=== PATIENT | female | born 1990 | race Caucasian/White ===

== ENCOUNTER 2018-10-21 18:25 | Emergency (ER) | payer SELFPAY ==
[2018-10-21] MEDS ORDERED: LIDOCAINE 1% INJ-PF (10 MG/ML) 30 ML SDV NEB ONE (18:51)
[2018-10-21] MEDS ORDERED: AZITHROMYCIN 1 GM SUSP PACKET PO ONE (18:51)
[2018-10-21] MEDS ORDERED: CEFTRIAXONE INJ 250 MG VIAL IM ONE (18:51)
[2018-10-21] MEDS ORDERED: AZITHROMYCIN 250 MG TABLET PO ONE (19:06)
[2018-10-21 19:18] LABS: EPITHELIALS (WET MOUNT) 4+ EPITHELIALS SEEN; RBCS (WET MOUNT) RARE RBCS SEEN; T.VAGINALIS (WET MOUNT) NO TRICHOMONAS SEEN; WBCS (WET MOUNT) FEW WBCS SEEN; YEAST (WET MOUNT) NO YEAST SEEN
[2018-10-21 19:19] LABS: APPEARANCE,URINE CLEAR; BILIRUBIN,URINE NEGATIVE (NEGATIVE); COLOR,URINE AMBER; GLUCOSE, URINE NEGATIVE (NEGATIVE); KETONES,URINE NEGATIVE (NEGATIVE); LEUKOCYTE ESTERASE,URINE TRACE (NEGATIVE); NITRITE,URINE POSITIVE (NEGATIVE); PROTEIN,URINE 30 mg/dL (NEGATIVE); URINE SPECIFIC GRAVITY 1.019
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
[2018-10-21 19:42] VITALS: BP 114/73
[2018-10-21 20:48] LABS: CHLAM PCR NOT DETECTED (NOT DETECT)
== END 2018-10-21 19:59 | disposition home or self-care (01) ==
LOC: ER 18:25
DX: N30.01 Acute cystitis with hematuria (principal); R30.0 Dysuria; R35.0 Frequency of micturition; R10.30 Lower abdominal pain, unspecified; M54.5 Low back pain; R39.15 Urgency of urination; F17.200 Nicotine dependence, unspecified, uncomplicated
CPT/HCPCS: 94640; 99283; 87210; 81025; 81001; 87491; 87591; J3490; J0696

== ENCOUNTER → 2019-03-22 | Outpatient (CLI) | payer MEDICAID ==
--- NOTE | 2019-03-22 14:09 | RADIOLOGY REPORT (SQ) ---
EXAM DESCRIPTION: U/S OB 14+ TRNABD 1GES W/O DOP COMPLETED DATE/TIME: 03/22/2019 11:18 am REASON FOR STUDY: Z34.82 ENCOUNTER FOR SUPERVISION OF OTHER NORMAL , SECOND TRIMESTE Z34.82 ENCOUNTER FOR SUPRVSN OF NORMAL , SECOND TRI COMPARISON: None. TECHNIQUE: Static and Dynamic grayscale imaging performed of gravid uterus using transabdominal appr oach. Additional selected color Doppler and spectral images recorded. All stored on PACS. LIMITATIONS: None. FINDINGS: FETUSES SEEN:1 EGA: 18 weeks 6 days Calculated using BPD,FL,HC,AC documented on images. No discrepancy with clinica l dates. IRAIS: 08/17/2019 EFW: 259 +/-38 grams PERCENTILE: Not applicable. Fetus less than or equal to 20 weeks gestation. JANET: LVP 3.6 cm x 5.9 cm PLACENTA: Posterior. PRESENTATION: Breech. ANATOMY: HEART RATE: 163 beats per minute. FOUR CHAMBER HEART: Visualized. THREE VESSEL CORD: Yes. CORD INSERTION: Not visualized. KIDNEYS AND BLADDER: Visualized. Appear normal. STOMACH: Visualized. Appears normal. SPINE: Normal as visualized. BRAIN AND LATERAL VENTRICLES: Visualized. Appear normal. OTHER: No other significant finding. MATERNAL ADNEXA: Maternal ovaries not visualized. CERVICAL LENGTH: Not visualized. Patient voided prior to the examination. OTHER: No other significant finding. IMPRESSION: LIVING INTRAUTERINE . ESTIMATED GESTATIONAL AGE: 18 weeks 6 days NO VISUALIZED ANOMALIES. Trimester of : Second trimester - 13 weeks 1 day to 27 weeks 6 days. TECHNICAL DOCUMENTATION: JOB ID: [id number] [employer]- All Rights Reserved Reading location - IP/workstation name: [email or web address]
== END ==
LOC: RAD 10:14
PROVIDERS: ATTEND Midwife
DX: Z34.82 Encounter for supervision of other normal pregnancy, second trimester (principal); Z3A.18 18 weeks gestation of pregnancy
CPT/HCPCS: 76805

== ENCOUNTER 2019-08-09 07:53 | Inpatient (IN) | payer MEDICAID ==
[2019-08-02 11:22] LABS: APPEARANCE,URINE CLEAR; BILIRUBIN,URINE NEGATIVE (NEGATIVE); COLOR,URINE YELLOW; GLUCOSE, URINE NEGATIVE (NEGATIVE); KETONES,URINE NEGATIVE (NEGATIVE); LEUKOCYTE ESTERASE,URINE NEGATIVE (NEGATIVE); NITRITE,URINE NEGATIVE (NEGATIVE); PROTEIN,URINE NEGATIVE (NEGATIVE); URINE SPECIFIC GRAVITY 1.008; UROBILINOGEN,URINE NEGATIVE mg/dL (<2.0)
[2019-08-02 11:45] LABS: URINE AMPHETAMINES SCREEN NEGATIVE; URINE BARBITURATES SCREEN NEGATIVE; URINE BENZODIAZEPINES SCREEN NEGATIVE; URINE COCAINE SCREEN NEGATIVE; URINE MARIJUANA (THC) SCREEN NEGATIVE; URINE METHADONE SCREEN NEGATIVE; URINE PHENCYCLIDINE SCREEN NEGATIVE
[2019-08-02 12:04] LABS: ABSOLUTE EOSINOPHILS # (AUTO) 0.1 10^3/uL (0.0-0.6); ABSOLUTE MONOCYTES (AUTO) 0.6 10^3/uL (0.1-1.4); ABSOLUTE NEUT (AUTO) 7.1 10^3/uL (1.7-8.2); BASOPHILS % (AUTO) 0.4 % (0-2); EOSINOPHILS % (AUTO) 0.9 % (0-6); HEMATOCRIT 39.6 % (36.0-47.0); HEMOGLOBIN 14.2 g/dL (12.0-15.5); MEAN CORPUSCULAR HEMOGLOBIN 34.3 pg (27.0-33.4); MEAN CORPUSCULAR HGB CONC 35.8 g/dL (32.0-36.0); MEAN CORPUSCULAR VOLUME 96 fl (80-97); MONOCYTES % (AUTO) 6.4 % (3-13); PLATELET COUNT 184 10^3/uL (150-450); RED BLOOD COUNT 4.13 10^6/uL (3.72-5.28); RED CELL DISTRIBUTION WIDTH 13.8 % (11.5-14.0); SEGMENTED NEUTROPHILS % (AUTO) 72.3 % (42-78); TOTAL CELLS COUNTED % (AUTO) 100 %; WHITE BLOOD COUNT 9.8 10^3/uL (4.0-10.5)
[~2019-08-09 07:53] MED LIST: CEFAZOLIN 2 GM/D5W RTU 2 GM/50 ML RTUPB IV PRN; LACTATED RINGERS 1000 ML IV PRN; LIDOCAINE 0.5% INJ-PF (5 MG/ML) 50 ML SDV SUBCUT PRN
[2019-08-09] MEDS ORDERED: PHENYLEPHRINE HCL INJ/PF 10 MG/1 ML SDV ONE (08:46)
[2019-08-09] MEDS ORDERED: FENTANYL CITRATE INJ/PF 100 MCG/2 ML AMPUL ONE (08:46)
[2019-08-09] MEDS ORDERED: OXYTOCIN 10 UNIT/ML VIAL ONE (08:46)
[2019-08-09] MEDS ORDERED: KETOROLAC TROMETHAMINE INJ/PF 30 MG/1 ML SDV ONE (08:46)
[2019-08-09] MEDS ORDERED: EPHEDRINE SULFATE INJ 50 MG/1 ML AMPULE ONE (08:47)
[2019-08-09] MEDS ORDERED: MIDAZOLAM 2 MG/2 ML INJ ONE (08:47)
[2019-08-09] MEDS ORDERED: ACETAMINOPHEN 1,000 MG/100 ML RTUPB IV ONE (08:47)
[2019-08-09] MEDS ORDERED: OXYTOCIN/0.9 % SODIUM CHLORIDE 30 UNIT/500 ML RTUINJ ONE (08:47)
[2019-08-09] MEDS ORDERED: ONDANSETRON HCL INJ/PF 4 MG/2 ML SDV ONE (08:47)
[2019-08-09 10:00] LABS: CHLAM PCR NOT DETECTED (NOT DETECT)
[2019-08-09] MEDS ORDERED: CEFAZOLIN 2 GM/D5W RTU 2 GM/50 ML RTUPB IV ONE (10:28)
[2019-08-09] MEDS ORDERED: MEPERIDINE HCL/PF INJ 25 MG/1 ML DISP.SYRIN IV PRN (11:11)
[2019-08-09] MEDS ORDERED: PROMETHAZINE HCL INJ 25 MG/1 ML VIAL IV PRN ×3 (11:11→11:41)
[2019-08-09] MEDS ORDERED: ONDANSETRON HCL INJ/PF 4 MG/2 ML SDV IV PRN (11:11)
[2019-08-09] MEDS ORDERED: DIPHENHYDRAMINE HCL 50 MG/ML VIAL IV PRN (11:11)
[2019-08-09] MEDS ORDERED: OXYCODONE-ACETAMINOPHEN 5-325 MG TABLET PO PRN ×2 (11:11)
[2019-08-09] MEDS ORDERED: FENTANYL CITRATE INJ/PF 100 MCG/2 ML AMPUL IV PRN ×3 (11:11)
[2019-08-09] MEDS ORDERED: NALBUPHINE HCL INJ 10 MG/1 ML AMPULE ONE (11:40)
--- NOTE | 2019-08-09 11:40 | Operative Report ---
Operative Report DATE OF SURGERY: 08/09/19 PREOPERATIVE DIAGNOSIS: IUP term prior section desire for sterilization POSTOPERATIVE DIAGNOSIS: Same OPERATION: Repeat low transverse section delivery of a viable female bilateral tubal occlusion using Filshie clips SURGEON: CARMEN STEVENS ANESTHESIA: Spinal TISSUE REMOVED OR ALTERED: Placenta PROCEDURE: The patient was taken to the operating room where spinal anesthesia was obtained and found to be adequate. She was then prepped and draped in the normal sterile fashion and placed in the dorsal supine position with a leftward tilt. A Pfannenstiel skin incision was then made and carried through to the underlying layers of the fascia with the scalpel. The fascia was incised in the midline and the incision extended laterally with the Rodas scissors. The superior aspect of the fascial incision was then grasped with [place] clamps elevated and the underlying rectus muscles dissected off bluntly. Attention was then turned to the inferior aspect of the fascial incision which in a similar fashion was grasped, tented up with Isaak clamps, and the rectus muscles dissected off bluntly. The rectus muscles were then in the midline and the peritoneum at the amount identified and entered bluntly. The peritoneal incision was then extended superiorly and inferiorly with good visualization of the bladder. [The bladder blade was inserted and the vesicouterine peritoneum identified grasped with [place] pickups and entered sharply with the Metzenbaum scissors. His incision was then extended laterally with the Metzenbaum scissors and a bladder flap created digitally. The bladder blade was then reinserted and the lower uterine segment incised in a transverse fashion with the scalpel. The uterine incision was then extended bluntly. The bladder blade was removed and the infant's head was delivered from cephalic presentation atraumatically. The nose and mouth were suctioned and the cord doubly clamped and cut. And the infant was handed off to waiting pediatricians. The placenta was then delivered manully and the uterus exteriorized and cleared of all clots and debris. The uterine incision was then repaired with 1-0 Vicryl in a running locked fashion. A second layer of the same suture was used to obtain hemostasis via imbrication of the initial layer. Right fallopian tube was banded in the midportion using Filshie clips with good purchase of tissue being noted and the procedure begun on the left. The uterus was returned to the patient's abdomen. The gutters were cleared of all clots and debris. All operative sites were noted to be hemostatic. The fascia was reapproximated with 0 Vicryl in a running fashion from each lateral edge to the midline. The patient tolerated the procedure well. Sponge lap needle and instrument counts are correct -2. 2 g of Ancef were given prior to skin incision. The patient was taken to the recovery area awake and in stable condition.
[2019-08-09] MEDS ORDERED: RINGERS SOLUTION,LACTATED 1,000 ML IV PRN (11:41)
[2019-08-09] MEDS ORDERED: ACETAMINOPHEN 1,000 MG/100 ML RTUPB IV PRN (11:41)
[2019-08-09] MEDS ORDERED: MEASLES,MUMPS&RUBELLA VACC/PF 0.5 ML VIAL SUBCUT PRN (11:41)
[2019-08-09] MEDS ORDERED: OXYTOCIN/0.9 % SODIUM CHLORIDE 30 UNIT/500 ML RTUINJ IV PRN (11:41)
[2019-08-09] MEDS ORDERED: DIPH/PERTUSS(ACELL)/TETANUS VAC/PF 0.5 ML SYR (>=10YO) IM PRN (11:41)
[2019-08-09] MEDS ORDERED: ACETAMINOPHEN 325 MG TABLET PO PRN (11:41)
[2019-08-09] MEDS ORDERED: SIMETHICONE 80 MG TAB.CHEW PO PRN (11:41)
[2019-08-09] MEDS ORDERED: MORPHINE SULFATE 10 MG/ML INJ IM PRN (11:41)
[2019-08-09] MEDS ORDERED: KETOROLAC TROMETHAMINE INJ/PF 30 MG/1 ML SDV IV SCH (14:00)
[2019-08-09] MEDS: OXYCODONE-ACETAMINOPHEN 5-325 MG TABLET PO PRN ×2 (14:10→21:40)
[2019-08-09] MEDS: KETOROLAC TROMETHAMINE INJ/PF 30 MG/1 ML SDV IV SCH (17:41)
[2019-08-09] MEDS: DOCUSATE SODIUM 100 MG CAPSULE PO SCH (17:41)
[2019-08-10] MEDS: KETOROLAC TROMETHAMINE INJ/PF 30 MG/1 ML SDV IV SCH (02:01)
[2019-08-10] MEDS: OXYCODONE-ACETAMINOPHEN 5-325 MG TABLET PO PRN ×5 (02:09→23:10)
[2019-08-10] MEDS: IBUPROFEN 800 MG TABLET PO SCH ×4 (05:30→23:09)
[2019-08-10 07:23] LABS: HEMATOCRIT 32.6 % (36.0-47.0); HEMOGLOBIN 11.4 g/dL (12.0-15.5); MEAN CORPUSCULAR HEMOGLOBIN 34.2 pg (27.0-33.4); MEAN CORPUSCULAR VOLUME 98 fl (80-97); PLATELET COUNT 147 10^3/uL (150-450); RED BLOOD COUNT 3.35 10^6/uL (3.72-5.28); RED CELL DISTRIBUTION WIDTH 13.9 % (11.5-14.0); WHITE BLOOD COUNT 10.3 10^3/uL (4.0-10.5)
[2019-08-10] MEDS: PRENATAL VITAMIN W DHA CAPSULE PO SCH (09:57)
[2019-08-10] MEDS: DOCUSATE SODIUM 100 MG CAPSULE PO SCH ×2 (09:57→17:44)
--- NOTE | 2019-08-10 11:10 | PDOC PROGRESS REPORT ---
Subjective-OB Progress Note for:: 08/10/19 Subjective: 28yo G3 now P3 s/p repeat with BTL ppd 1. Pt is ambulating, voiding without difficulty, passing gas. Reports pain well controlled with medication, no concerns at this time. Physical Exam (OB) Vital Signs: Temp Pulse Resp BP Pulse Ox 98.1 F 90 18 114/57 L 98 08/10/19 00:07 08/10/19 00:07 08/10/19 00:07 08/10/19 00:07 08/10/19 00:07 Intake & Output 08/09/19 08/10/19 08/11/19 06:59 06:59 06:59 Intake Total 815 250 Output Total 2000 Balance -1185 250 - General General Appearance: Appears well In distress: None - PIH/Pre-Eclampsia DTR's: 2 + Clonus: Negative Headache: Absent Epigastric Pain: No Visual Changes: No - Dressing Removed: No Incision: Dressing Closure Type: pressure - Lochia Lochia Amount: Scant < 10 ml Lochia Color: Rubra/Red - Abdomen Description: Soft, Round Fundal Description: Firm, Midline Fundal Height: u/u - u/2 - Respiratory Respiratory Status: No respiratory distress - Extremities Upper extremity: Normal inspection Lower extremities: Normal inspection - Neurological Cognition: Normal Orientation: AAOx4 - Psychological Associated symptoms: Normal affect, Normal mood Objective-Diagnostic Laboratory: 08/10/19 06:45 08/10/19 06:45 WBC 10.3 RBC 3.35 L Hgb 11.4 L Hct 32.6 L MCV 98 H MCH 34.2 H MCHC 35.0 RDW 13.9 Plt Count 147 L Assessment and Plan(PN) - Assessment and Plan (1) Sterilization Is this a current diagnosis for this admission?: Yes Plan: routine pp care (2) Thrombocytopenia Is this a current diagnosis for this admission?: Yes Plan: repeat CBC in the am, warning s/s reviewed (3) S/P repeat low transverse Is this a current diagnosis for this admission?: Yes Plan: routine pp care - Time Spent with Patient Time with patient: Less than 15 minutes Medications reviewed and adjusted accordingly: Yes - Disposition Anticipated Discharge: Home Within: within 24 hours
[2019-08-11] MEDS: IBUPROFEN 800 MG TABLET PO SCH (06:17)
[2019-08-11 07:06] LABS: ABSOLUTE BASOPHILS # (AUTO) 0.1 10^3/uL (0.0-0.2); ABSOLUTE EOSINOPHILS # (AUTO) 0.1 10^3/uL (0.0-0.6); ABSOLUTE LYMPHOCYTES (AUTO) 2.4 10^3/uL (0.5-4.7); ABSOLUTE MONOCYTES (AUTO) 0.5 10^3/uL (0.1-1.4); BASOPHILS % (AUTO) 0.9 % (0-2); EOSINOPHILS % (AUTO) 1.2 % (0-6); HEMATOCRIT 33.2 % (36.0-47.0); HEMOGLOBIN 11.9 g/dL (12.0-15.5); MEAN CORPUSCULAR HEMOGLOBIN 34.7 pg (27.0-33.4); MEAN CORPUSCULAR HGB CONC 35.9 g/dL (32.0-36.0); MEAN CORPUSCULAR VOLUME 97 fl (80-97); MONOCYTES % (AUTO) 6.7 % (3-13); PLATELET COUNT 164 10^3/uL (150-450); RED BLOOD COUNT 3.44 10^6/uL (3.72-5.28); SEGMENTED NEUTROPHILS % (AUTO) 62.2 % (42-78); TOTAL CELLS COUNTED % (AUTO) 100 %; WHITE BLOOD COUNT 8.1 10^3/uL (4.0-10.5)
[2019-08-11] MEDS: DOCUSATE SODIUM 100 MG CAPSULE PO SCH (09:28)
[2019-08-11] MEDS: PRENATAL VITAMIN W DHA CAPSULE PO SCH (09:28)
[2019-08-11] MEDS: OXYCODONE-ACETAMINOPHEN 5-325 MG TABLET PO PRN (09:29)
--- NOTE | 2019-08-11 11:38 | PDOC DISCHARGE SUMMARY ---
Impression - Admit/DC Date/PCP Admission Date/Primary Care Provider: 08/09/19 07:53 CARMEN STEVENS MD Discharge Date: 08/11/19 - Discharge Diagnosis (1) S/P repeat low transverse Is this a current diagnosis for this admission?: Yes (2) Sterilization Is this a current diagnosis for this admission?: Yes - Additional Information Discharge Diet: Regular Discharge Activity: Balance Activity w/Rest, No Lifting/Push/Pulling, Pelvic Rest, No tub bath Referrals: CARMEN STEVENS MD [Primary Care Provider] - Prescriptions: Ibuprofen [Motrin 800 mg Tablet] 800 mg PO Q8HP PRN #90 tablet PRN Reason: Oxycodone HCl/Acetaminophen [Percocet 5-325 mg Tablet] 1 tab PO Q4HP PRN #30 tablet PRN Reason: Home Medications: Vit,Calc78/Iron/Folic [Prenatabs FA Tablet] 1 each PO ASDIR PRN 08/02/19 Ibuprofen [Motrin 800 mg Tablet] 800 mg PO Q8HP PRN #90 tablet 08/11/19 Oxycodone HCl/Acetaminophen [Percocet 5-325 mg Tablet] 1 tab PO Q4HP PRN #30 tablet 08/11/19 Results Laboratory Results: WBC 8.1 10^3/uL (4.0-10.5) 08/11/19 06:55 RBC 3.44 10^6/uL (3.72-5.28) L 08/11/19 06:55 Hgb 11.9 g/dL (12.0-15.5) L 08/11/19 06:55 Hct 33.2 % (36.0-47.0) L 08/11/19 06:55 MCV 97 fl (80-97) 08/11/19 06:55 MCH 34.7 pg (27.0-33.4) H 08/11/19 06:55 MCHC 35.9 g/dL (32.0-36.0) 08/11/19 06:55 RDW 14.0 % (11.5-14.0) 08/11/19 06:55 Plt Count 164 10^3/uL (150-450) 08/11/19 06:55 Lymph % (Auto) 29.0 % (13-45) 08/11/19 06:55 [place] % (Auto) 6.7 % (3-13) 08/11/19 06:55 Eos % (Auto) 1.2 % (0-6) 08/11/19 06:55 Baso % (Auto) 0.9 % (0-2) 08/11/19 06:55 Absolute Neuts (auto) 5.0 10^3/uL (1.7-8.2) 08/11/19 06:55 Absolute Lymphs (auto) 2.4 10^3/uL (0.5-4.7) 08/11/19 06:55 Absolute Monos (auto) 0.5 10^3/uL (0.1-1.4) 08/11/19 06:55 Absolute Eos (auto) 0.1 10^3/uL (0.0-0.6) 08/11/19 06:55 Absolute Basos (auto) 0.1 10^3/uL (0.0-0.2) 08/11/19 06:55 Seg Neutrophils % 62.2 % (42-78) 08/11/19 06:55 Urine Color YELLOW 08/02/19 10:05 Urine Appearance CLEAR 08/02/19 10:05 Urine pH 7.0 (5.0-9.0) 08/02/19 10:05 Ur Specific [place] 1.008 08/02/19 10:05 Urine Protein NEGATIVE mg/dL (NEGATIVE) 08/02/19 10:05 Urine Glucose (UA) NEGATIVE mg/dL (NEGATIVE) 08/02/19 10:05 Urine Ketones NEGATIVE mg/dL (NEGATIVE) 08/02/19 10:05 Urine Blood NEGATIVE (NEGATIVE) 08/02/19 10:05 Urine Nitrite NEGATIVE (NEGATIVE) 08/02/19 10:05 Urine Bilirubin NEGATIVE (NEGATIVE) 08/02/19 10:05 Urine Urobilinogen NEGATIVE mg/dL (<2.0) 08/02/19 10:05 Ur Leukocyte Esterase NEGATIVE (NEGATIVE) 08/02/19 10:05 Urine WBC (Auto) 0 /HPF 08/02/19 10:05 Urine RBC (Auto) 0 /HPF 08/02/19 10:05 Squamous Epi Cells Auto 1 /HPF 08/02/19 10:05 Urine Mucus (Auto) RARE /LPF 08/02/19 10:05 Urine Ascorbic Acid NEGATIVE (NEGATIVE) 08/02/19 10:05 Urine Opiates Screen NEGATIVE 08/02/19 10:05 Urine Methadone Screen NEGATIVE 08/02/19 10:05 Ur Barbiturates Screen NEGATIVE 08/02/19 10:05 Ur Phencyclidine Scrn NEGATIVE 08/02/19 10:05 Ur Amphetamines Screen NEGATIVE 08/02/19 10:05 U Benzodiazepines Scrn NEGATIVE 08/02/19 10:05 Urine Cocaine Screen NEGATIVE 08/02/19 10:05 U Marijuana (THC) Screen NEGATIVE 08/02/19 10:05 RPR NONREACTIVE (NONREACTIVE) 08/10/19 06:45 Chlamydia DNA (PCR) NOT DETECTED (NOT DETECT) 08/09/19 08:09 COVID-19 Source NASOPHARYNGEAL 08/02/19 10:44 COVID-19 (GRISELDA) NOT DETECTED 08/02/19 10:44 N.gonorrhoeae DNA (PCR) NOT DETECTED (NOT DETECT) 08/09/19 08:09 Blood Type A POSITIVE 08/08/19 13:10 Antibody Screen NEGATIVE 08/08/19 13:10 Plan Plan of Treatment: follow up in one week at [facility] for incision check
[2019-08-11 11:54] VITALS: BP 130/78
== END 2019-08-11 14:48 | disposition home or self-care (01) | DRG 784 ==
LOC: 2S 07:53
PROVIDERS: ADMIT Obstetrics & Gynecology Gynecology; ATTEND Obstetrics & Gynecology Gynecology
PROC: 10D00Z1 Extraction of Products of Conception, Low, Open Approach (ICD-10-PCS; principal; 2019-08-09)
PROC: 0UL70CZ Occlusion of Bilateral Fallopian Tubes with Extraluminal Device, Open Approach (ICD-10-PCS; 2019-08-09)
DX: O34.211 Maternal care for low transverse scar from previous cesarean delivery (principal); O99.12 Other diseases of the blood and blood-forming organs and certain disorders involving the immune mechanism complicating childbirth; D69.6 Thrombocytopenia, unspecified; O75.89 Other specified complications of labor and delivery; R77.2 Abnormality of alphafetoprotein; O99.334 Smoking (tobacco) complicating childbirth; F17.210 Nicotine dependence, cigarettes, uncomplicated; Z3A.40 40 weeks gestation of pregnancy; Z37.0 Single live birth; Z30.2 Encounter for sterilization; Z03.818 Encounter for observation for suspected exposure to other biological agents ruled out
CPT/HCPCS: 1961; 36415; 80307; 81001; 85025; 85027; 86592; 86850; 86900; 86901; 87491; 87591; 87635; 94799; C9803; J0131; J0690; J1885; J2250; J2270; J2300; J2370; J2405; J2590; J3010; J3490; J7120